=== PATIENT | female | born 1965 ===

== ENCOUNTER 2020-12-23 06:28 | Emergency (ER) | payer OTHER, MEDICAID, SELFPAY ==
[2020-12-23 06:30] VITALS: BP 175/94; PULSE 90; RESP 18; TEMP 36.2; O2SAT 99; BMI 39.0
--- NOTE | 2020-12-23 06:44 | ED.SKABFB ---
HPI - Skin/Abscess/Foreign Bdy General Chief complaint: Skin/Abscess/Foreign Body Stated complaint: thinks she has infection on her face/eyes x 2 days Time Seen by Provider: 12/23/20 06:44 Source: patient Mode of arrival: Ambulatory Limitations: no limitations History of Present Illness HPI narrative: Patient is a 55-year-old female who presents with left-sided facial swelling. She started noticing it yesterday but seems to gotten significantly worse last night. She says that she cannot breathe out of her left nostril extremely tender she feels like the whole side of her face is swollen. This morning she woke up in her left inferior periorbital area is quite swollen. She is able to open both eyes completely. She denies any fever chills any new exposures. She there is no erythema on her face that she says is quite sensitive to touch. MD complaint: rash Onset (ago): day(s) (1) Location: face Severity: mild Related Data Previous Rx's Medication Instructions Recorded prednisone 40 mg PO DAILY #10 tab 12/23/20 Allergies Allergy/AdvReac Type Severity Reaction Status Date / Time morphine [MORPHINE] Allergy Mild [place] like Unverified 12/04/17 12:12 bugs crawling on the skin Review of Systems Review of Systems ROS Unobtainable: All systems reviewed & are unremarkable except as noted in HPI and below Constitutional Constitutional: Denies chills, Denies fever(s), Denies headache(s), Denies lethargy and Denies weakness ENT Ears, Nose, Mouth, and Throat: Reports system reviewed and no additional complaints, except as documented, Reports as per HPI, Denies vertigo and Denies headache(s) Cardiovascular Cardiovascular: Denies chest pain, Denies irregular heart rhythm, Denies lightheadedness, Denies palpitations, Denies dyspnea, Denies dyspnea on exertion and Denies orthopnea Respiratory Respiratory: Denies cough, Denies dyspnea, Denies dyspnea on exertion and Denies wheezing Gastrointestinal Gastrointestinal: Denies abdominal pain, Denies change in bowel habits, Denies diarrhea, Denies nausea and Denies vomiting Musculoskeletal Musculoskeletal: Denies back pain and Denies myalgias Integumentary/Breasts Skin/Breast: Denies pruritus, Denies erythema, Denies rash and Denies wounds Neurologic Neurologic: Denies confusion, Denies vertigo, Denies headache(s) and Denies weakness Psychiatric Psychiatric: Denies confusion Endocrine Endocrine: Denies palpitations Allergic/Immunologic Allergic/Immunologic: Denies wheezing Patient History Surgical History Status post laparoscopic supracervical hysterectomy Social History Smoking Status: Former smoker Smoking Status: Former smoker Substance Use Type: does not use Exam Initial Vital Signs Initial Vital Signs: Vital Signs Temperature 97.2 F L 12/23/20 06:30 Pulse Rate 90 12/23/20 06:30 Respiratory Rate 18 12/23/20 06:30 Blood Pressure 175/94 H 12/23/20 06:30 Pulse Oximetry 99 12/23/20 06:30 GENERAL: Well-appearing, well-nourished and in no acute distress. HEENT: Head atraumatic,EOMI, pupils reactive, mild left-sided facial swelling around the left naris certain left nares more swollen. She has some left control periorbital swelling as well. Able to open both eyes completely. CARDIOVASCULAR: Regular rate and rhythm without murmurs, rubs or gallops. RESPIRATORY: Breath sounds equal bilaterally, no wheezes rales or rhonchi. EXTREMITIES: Normal range of motion, no clubbing or edema. Neurovascularly intact NEUROLOGICAL: Alert and oriented x4.Normal gait and speech. Cranial nerves II through XII grossly intact. SKIN: Warm, dry, no laceration, no petechiae, no rashes or lesions. Course Vital Signs Vital signs: Vital Signs - 8 hr 12/23/20 06:30 Temperature 97.2 F L Pulse Rate 90 Respiratory Rate 18 Blood Pressure 175/94 H Pulse Oximetry 99 MDM - Skin/Abscess/Foreign Bdy MDM Narrative Medical decision making narrative: Possible allergic reaction. Unknown as to what. At this time will treat with prednisone Benadryl and [id number] allergic to medications. No need for antibiotics at this time. However I did discuss with her that if her symptoms should worsen she may need antibiotics. Discharge Plan Departure Patient Disposition: Home Clinical Impression: Allergic reaction Qualifiers: Encounter type: initial encounter Qualified Code(s): T78.40XA - Allergy, unspecified, initial encounter Instructions: DI for General Allergic Reactions Activity Restrictions/Additional Instructions: *You have been diagnosed with allergic reaction *What to do: At this time I think this is allergic reaction and not an infection however that may change if you do not have improving symptoms *Continue to take medications as directed Prednisone 40 mg once daily for 5 days Benadryl 25-50 mg every 6 hours if needed for itching Gosy-knn-inqyhea allergic medications such as Claritin or Jeanne is take as directed *Follow up with your primary care provider in 2-3 days *Return to ER if you should have increasing redness, facial swelling, difficulty breathing or any new, worsening or concerning symptoms Prescriptions: New prednisone 20 mg tablet 40 mg PO DAILY Qty: 10 RF: 0
== END 2020-12-23 06:57 | disposition home or self-care (01) ==
PROVIDERS: Emergency Provider Emergency Medicine
DX: R21 Rash and other nonspecific skin eruption (principal); T78.40XA Allergy, unspecified, initial encounter
CPT/HCPCS: 99281

== ENCOUNTER 2021-01-02 16:13 | Observation (INO) | payer OTHER, MEDICAID, SELFPAY ==
--- NOTE | 2021-01-02 16:12 | ED_ITS ---
HPI - Abdominal Pain General Chief Complaint: Abdominal Pain Stated Complaint: Abd pain Time Seen by Provider: 01/02/21 16:14 Source: patient and EMS Mode of arrival: EMS Limitations: no limitations History of Present Illness HPI narrative: 55-year-old female former smoker with history of kidney stones and type 2 diabetes presents by EMS with a chief complaint of abdominal pain and tenderness since with nausea and watery stools. Her pain is rather persistent and she denies much in the way of provocation, palliation or radiation. Denies any recent travel, exposure to bad food or recent antibiotic use. She denies any history of the same. She is not dizzy nor weak or lightheaded. She denies any fever or chills. She does complain of some bright red blood in her stools over the past few days MD complaint: abdominal pain Onset (ago): day(s) Pain Consistency: constant Location: suprapubic Severity: moderate Quality: cramping and stabbing Radiation: none Relieving factors: nothing Exacerbating factors: nothing Associated symptoms: nausea and diarrhea Related Data Previous Rx's Medication Instructions Recorded prednisone 40 mg PO DAILY #10 tab 12/23/20 Allergies Allergy/AdvReac Type Severity Reaction Status Date / Time morphine [MORPHINE] Allergy Mild [place] like Verified 01/02/21 16:20 bugs crawling on the skin Review of Systems Constitutional Constitutional: Denies chills, Denies fatigue, Denies fever(s), Denies frequent falls, Denies lethargy and Denies weakness Eyes Eyes: Denies change in vision, Denies eye discharge, Denies irritation and Denies loss of vision ENT Ears, Nose, Mouth, and Throat: Denies change in voice, Denies dizziness, Denies neck pain, Denies sore throat and Denies throat swelling Cardiovascular Cardiovascular: Denies chest pain, Denies irregular heart rhythm, Denies lightheadedness, Denies palpitations, Denies dyspnea, Denies dyspnea on exertion and Denies orthopnea Respiratory Respiratory: Denies cough, Denies dyspnea, Denies dyspnea on exertion and Denies wheezing Gastrointestinal Gastrointestinal: Reports abdominal pain, Denies change in bowel habits, Reports diarrhea, Reports nausea and Denies vomiting Musculoskeletal Musculoskeletal: Denies neck pain and Denies numbness Integumentary/Breasts Skin/Breast: Denies pruritus, Denies erythema, Denies rash and Denies wounds Neurologic Neurologic: Denies behavioral changes, Denies confusion, Denies dizziness, Denies frequent falls, Denies loss of vision, Denies numbness and Denies weakness Psychiatric Psychiatric: Denies anxiety, Denies behavioral changes, Denies confusion, Denies depression, Denies homicidal ideation and Denies suicidal ideation Endocrine Endocrine: Denies fatigue, Denies flushing and Denies palpitations Hematologic/Lymphatic Hematologic/Lymphatic: Denies easy bruising Allergic/Immunologic Allergic/Immunologic: Denies urticaria, Denies throat swelling and Denies wheezing Patient History Surgical History Status post laparoscopic supracervical hysterectomy Social History Smoking Status: Current every day smoker Smoking Status: Current every day smoker alcohol intake frequency: 0-2 drinks per day Substance Use Type: does not use Exam Narrative Exam Narrative: GENERAL: [55] year old patient appears stated age. Well- nourished, well-developed patient, in mild distress. Anxious, rubbing her lower abdomen HEAD: Atraumatic. Normocephalic. EYES: Pupils equal round and reactive. Extraocular motions intact. No scleral icterus. No injection or drainage. ENT: Nose without bleeding, purulent drainage. Throat without erythema, tonsillar hypertrophy or exudate. Airway patent. NECK: Trachea midline. Non tender CARDIOVASCULAR: Regular rate and rhythm without murmurs, gallops, or rubs. RESPIRATORY: Clear to auscultation. Breath sounds equal bilaterally. No wheezes, rales, or rhonchi. GASTROINTESTINAL: Abdomen soft, mildly tender to palpation, nondistended. Increased bowel sounds in all 4 quadrants EXTREMITIES: No edema or joint tenderness. BACK: Nontender without deformity or crepitance. No flank tenderness. NEURO: AOx3. SKIN: No rash or erythema of visible areas Initial Vital Signs Initial Vital Signs: Vital Signs Temperature 98.7 F 01/02/21 16:20 Pulse Rate 109 H 01/02/21 16:20 Respiratory Rate 22 01/02/21 16:20 Blood Pressure 188/98 H 01/02/21 16:20 Pulse Oximetry 98 01/02/21 16:20 Course Orders Ordered: ED Orders 01/02/21 16:16 CT abdomen pelvis w con Stat 01/02/21 16:50 Blood Culture Stat Complete Blood Count AUTO DIFF Stat Comprehensive Metabolic Panel Stat Lactate (Lactic Acid) Stat 01/02/21 17:00 Urine Microscopic Stat 01/02/21 18:42 COVID19 - ADMIT (MACHINIST CLASS B swab/PCR) Stat Piperacillin/Tazobactam/Dextrose (Zosyn) 4.5 gm in 100 mls @ 200 mls/hr IV NOW ONE Stop: 01/02/21 18:58 Last Admin: 01/02/21 18:38 Dose: 200 mls/hr Documented by: MIRIAN Discontinued Medications Sodium Chloride (Normal Saline 0.9%) 1,000 mls @ 1,000 mls/hr IV BOLUS ONE Stop: 01/02/21 17:14 Last Admin: 01/02/21 16:50 Dose: 1,000 mls/hr Documented by: MIRIAN Consultations Consultation #1: Discussed initially with on-call surgery, given the duration of her symptoms and overall presentation she recommends IV fluids, pain control, antibiotics and will see in consultation, recommended admission to the hospitalist Consultation #2: Hospitalist happy to accept this patient on their service Vital Signs Vital signs: Vital Signs - 8 hr 01/02/21 16:20 Temperature 98.7 F Pulse Rate 109 H Respiratory Rate 22 Blood Pressure 188/98 H Pulse Oximetry 98 MDM - Abdominal Pain Lab Data Result diagrams: 01/02/21 16:50 01/02/21 16:50 Labs: Lab Results 01/02/21 01/02/21 01/02/21 Range/Units 16:50 16:50 16:50 WBC 8.0 (4.5-11.0) X10^3/uL RBC 4.70 (4.0-5.2) X10^6/uL Hgb 14.0 (12.0-16.0) g/dL Hct 41.1 (36-46) % MCV 87.6 (80-100) fL MCH 29.8 (26-34) PG MCHC 34.0 (30-36) % RDW 13.3 (11.6-14.8) % Plt Count 281 (150-400) X10^3/uL Neut % (Auto) 75.2 H (50-75) % Lymph % (Auto) 17.8 L (25-40) % [place] % (Auto) 5.1 (3-14) % Eos % (Auto) 1.0 L (2-4) % Baso % (Auto) 0.9 (0-2) % Neut # (Auto) 6000 (3337-2463) /uL Lymph # (Auto) 1400 (4047-7922) /uL [place] # (Auto) 400 (0-900) /uL Eos # (Auto) 100 (0-450) /uL Baso # (Auto) 100 (0-100) /uL Sodium 133 L (137-145) mmol/L Potassium 4.0 (3.4-5.1) mmol/L Chloride 98 (98-107) mmol/L Carbon Dioxide 23 (22-32) mmol/L BUN 14 (7-17) mg/dL Creatinine 0.71 (0.52-1.04) mg/dL Estimated GFR > 60.0 (>60) mL/min BUN/Creatinine Ratio 19.7 (6-22) Glucose 312 H (70-100) mg/dL Lactate 1.2 (0.7-2.1) mmol/L Calcium 9.4 (8.4-10.2) mg/dL Total Bilirubin 0.4 (0.2-1.3) mg/dL AST 21 (14-36) IU/L ALT 20 (<35) IU/L Alkaline Phosphatase 131 H (38-126) U/L Total Protein 6.9 (6.3-8.2) g/dL Albumin 4.0 (3.5-5.0) g/dL Globulin 2.9 (1.7-4.1) g/dL Albumin/Globulin Ratio 1.4 (1.0-2.8) Urine RBC (0-5/HPF) Urine WBC (0-5/HPF) Ur Squamous Epith Cells (0-5/HPF) Urine Bacteria (None) Ur Culture Indicated? 01/02/21 Range/Units 17:00 WBC (4.5-11.0) X10^3/uL RBC (4.0-5.2) X10^6/uL Hgb (12.0-16.0) g/dL Hct (36-46) % MCV (80-100) fL MCH (26-34) PG MCHC (30-36) % RDW (11.6-14.8) % Plt Count (150-400) X10^3/uL Neut % (Auto) (50-75) % Lymph % (Auto) (25-40) % [place] % (Auto) (3-14) % Eos % (Auto) (2-4) % Baso % (Auto) (0-2) % Neut # (Auto) (2607-3942) /uL Lymph # (Auto) (2598-3499) /uL [place] # (Auto) (0-900) /uL Eos # (Auto) (0-450) /uL Baso # (Auto) (0-100) /uL Sodium (137-145) mmol/L Potassium (3.4-5.1) mmol/L Chloride (98-107) mmol/L Carbon Dioxide (22-32) mmol/L BUN (7-17) mg/dL Creatinine (0.52-1.04) mg/dL Estimated GFR (>60) mL/min BUN/Creatinine Ratio (6-22) Glucose (70-100) mg/dL Lactate (0.7-2.1) mmol/L Calcium (8.4-10.2) mg/dL Total Bilirubin (0.2-1.3) mg/dL AST (14-36) IU/L ALT (<35) IU/L Alkaline Phosphatase (38-126) U/L Total Protein (6.3-8.2) g/dL Albumin (3.5-5.0) g/dL Globulin (1.7-4.1) g/dL Albumin/Globulin Ratio (1.0-2.8) Urine RBC 0-1/hpf (0-5/HPF) Urine WBC 0-1/hpf (0-5/HPF) Ur Squamous Epith Cells 5-10 /hpf H (0-5/HPF) Urine Bacteria Few (2-10) H (None) Ur Culture Indicated? Cult not indicated Point of care testing: Point of Care Testing Test Results Negative Urine Dip Bedside Urine Glucose 1000 mg/dl Bedside Urine Bilirubin - Negative Bedside Urine Ketone +/- 5 Urine Specific [place] 1.015 Bedside Urine Occult Blood - Negative Bedside Urine pH 6.0 Bedside Urine Protein - Negative Bedside Urine Urobilinogen - Negative Bedside Urine Nitrite - Negative Imaging Data CT scan - abdomen/pelvis: Radiologist's Impression: [place] [id number] Scan ReportSigned Patient: Ginny Beebe R#: [id number]: 1965Acct:[id number]/Sex: 55 / FDate of Service: 01/02/21Loc: EDAccession Number: [id number] Procedure: CT abdomen pelvis w con Ordering Provider: Ruel Johnston D.O. PROCEDURE: CT ABDOMEN PELVIS W CON INDICATIONS: severe abdominal pain TECHNIQUE: After the administration of intravenous contrast, 5 mm thick sections acquired from the diaphragm to the symphysis. 5 mm coronal and sagittal reformats were acquired. For radiation dose reduction, the following was used: automated exposure control, adjustment of mA and/or kV according to patient size. COMPARISON: [facility], CT, ABDOMEN/PELVIS WITH CONTRAST, 09/07/2015, 22:04. FINDINGS: Lower thorax: The lung bases are clear. Heart size normal. Small hiatal hernia noted. Liver: The liver is diffusely decreased in attenuation without focal mass lesion. Biliary system: No calcified cholelithiasis or pericholecystic inflammation. No intra or extrahepatic bile duct dilatation. Pancreas: Unremarkable without mass or inflammation evident. Spleen: Normal in size and density. Adrenals: Normal morphology and density. Reproductive system: Unremarkable as visualized. Urinary system: Normal renal size and attenuation. No renal calculi, hydronephrosis, or solid mass present. Urinary bladder unremarkable. Gastrointestinal system: Associated with a loop of small bowel in the left flank, there is a 3.2 by 2.8 cm ovoid low density shows mural pneumatosis without evidence of free air. No small bowel obstruction. Appendix: Normal appendix identified. No evidence of appendicitis. Peritoneal spaces: No intra- or retroperitoneal adenopathy. No free air. No free fluid. Vasculature: The IVC, aorta and iliac vasculature are unremarkable. No evidence of portal venous gas. Mild atherosclerotic vascular calcification. Musculoskeletal: Normal bone mineralization. No acute fractures. Abdominal wall intact without evidence of ventral or inguinal hernias. L5 laminectomy with posterior instrumentation in good position. IMPRESSION: 1. Proximal small bowel focal pneumatosis in the left flank. Differential would include localized mesenteric ischemia and thrombosed small bowel polyp. No evidence of obstruction, portal venous gas, free air or free fluid. 2. Incidental hepatic fatty infiltration, small hiatal hernia. Critical results were discussed with Dr Johnston on 5:27 p.m. [place] time 05/2021 Dictated by: Ajit Chapin M.D. on 01/02/2021 at 17:13 Approved by: Ajit Chapin M.D. on 01/02/2021 at 17:31 Discharge Plan Departure Patient Disposition: Admitted As Inpatient Clinical Impression: Pneumatosis intestinalis
--- NOTE | 2021-01-02 16:16 | DI.CT.S_ITS ---
PROCEDURE: CT ABDOMEN PELVIS W CON INDICATIONS: severe abdominal pain TECHNIQUE: After the administration of intravenous contrast, 5 mm thick sections acquired from the diaphragm to the symphysis. 5 mm coronal and sagittal reformats were acquired. For radiation dose reduction, the following was used: automated exposure control, adjustment of mA and/or kV according to patient size. COMPARISON: [facility], CT, ABDOMEN/PELVIS WITH CONTRAST, 09/07/2015, 22:04. FINDINGS: Lower thorax: The lung bases are clear. Heart size normal. Small hiatal hernia noted. Liver: The liver is diffusely decreased in attenuation without focal mass lesion. Biliary system: No calcified cholelithiasis or pericholecystic inflammation. No intra or extrahepatic bile duct dilatation. Pancreas: Unremarkable without mass or inflammation evident. Spleen: Normal in size and density. Adrenals: Normal morphology and density. Reproductive system: Unremarkable as visualized. Urinary system: Normal renal size and attenuation. No renal calculi, hydronephrosis, or solid mass present. Urinary bladder unremarkable. Gastrointestinal system: Associated with a loop of small bowel in the left flank, there is a 3.2 by 2.8 cm ovoid low density shows mural pneumatosis without evidence of free air. No small bowel obstruction. Appendix: Normal appendix identified. No evidence of appendicitis. Peritoneal spaces: No intra- or retroperitoneal adenopathy. No free air. No free fluid. Vasculature: The IVC, aorta and iliac vasculature are unremarkable. No evidence of portal venous gas. Mild atherosclerotic vascular calcification. Musculoskeletal: Normal bone mineralization. No acute fractures. Abdominal wall intact without evidence of ventral or inguinal hernias. L5 laminectomy with posterior instrumentation in good position. IMPRESSION: 1. Proximal small bowel focal pneumatosis in the left flank. Differential would include localized mesenteric ischemia and thrombosed small bowel polyp. No evidence of obstruction, portal venous gas, free air or free fluid. 2. Incidental hepatic fatty infiltration, small hiatal hernia. Critical results were discussed with Dr Johnston on 5:27 p.m. [place] time 01/02/2021 Dictated by: Ajit Chapin M.D. on 01/02/2021 at 17:13 Approved by: Ajit Chapin M.D. on 01/02/2021 at 17:31
[2021-01-02 16:20] VITALS: BP 188/98; PULSE 109; RESP 22; TEMP 37.1; O2SAT 98; BMI 85.9
[2021-01-02] MEDS: SODIUM CHLORIDE 0.9% 1,000 ML 1000 ML IV (16:50)
[2021-01-02 17:05] LABS: Add Manual Diff / Slide Review NO; Basophils Absolute Auto 100 /uL (0-100); Basophils Percent Auto 0.9 % (0-2); Eosinophils Absolute Auto 100 /uL (0-450); Hematocrit 41.1 % (36-46); Lymphocytes Absolute Auto 1400 /uL (1100-4500); Lymphocytes Percent Auto 17.8 % (25-40); Mean Corpuscular Hemoglobin 29.8 PG (26-34); Mean Corpuscular Volume 87.6 fL (80-100); Monocytes Absolute Auto 400 /uL (0-900); Monocytes Percent Auto 5.1 % (3-14); Neutrophils Absolute Auto 6000 /uL (1500-7000); Neutrophils Percent Auto 75.2 % (50-75); Platelet Count 281 X10^3/uL (150-400); Red Cell Distribution Width 13.3 % (11.6-14.8)
[2021-01-02 17:11] LABS: Lactate (Lactic Acid) 1.2 mmol/L (0.7-2.1)
[2021-01-02 17:12] LABS: Alanine Aminotransferase 20 IU/L (<35); Albumin Globulin Ratio 1.4 (1.0-2.8); Alkaline Phosphatase 131 U/L (38-126); Aspartate Aminotransferase 21 IU/L (14-36); BUN Creatinine Ratio 19.7 (6-22); Bilirubin Total 0.4 mg/dL (0.2-1.3); Blood Urea Nitrogen 14 mg/dL (7-17); Calcium 9.4 mg/dL (8.4-10.2); Carbon Dioxide 23 mmol/L (22-32); Chloride 98 mmol/L (98-107); Estimated Glomerular Filt Rate > 60.0 mL/min (>60); Globulin 2.9 g/dL (1.7-4.1); Glucose 312 mg/dL (70-100); HEMOLYSIS < 15 (0-50); Sodium 133 mmol/L (137-145); Total Protein 6.9 g/dL (6.3-8.2)
[2021-01-02 17:52] LABS: Bacteria Urine Few (2-10); Culture Indicated Urine Cult Not Indicated; RBC Urine 0-1/HPF (0-5/HPF); Squamous Epithelial Cell Urine 5-10 /HPF (0-5/HPF); WBC Urine 0-1/HPF (0-5/HPF)
[2021-01-02] MEDS: PIPERACILLIN-TAZO 4.5 GM/100 ML FROZ.PIGGY IV (18:38)
[2021-01-02] MEDS: ONDANSETRON 4 MG/2 ML INJ IV (19:16)
[2021-01-02] MEDS: HYDROMORPHONE 0.5 MG INJ IV (19:16)
--- NOTE | 2021-01-02 19:43 | PM.HP.1 ---
History of Present Illness History of Present Illness Date Patient Seen: 01/02/21 Time Patient Seen: 19:43 Chief complaint: Abd pain Narrative: Patient is a 55-year-old female Ginny Beebe presented to the ED via EMS with a chief complaint of abdominal pain and tenderness since with nausea and watery stools and incontinence of stools. Her pain is sharp and comes and goes but is persistent, without provocation, palliation or radiation. The pain is generally diffuse, with the greatest intensity in a band like presentation across the upper left to right abdomen, No CVA tenderness, no pain with urination or liquid stools. Denies any recent travel, exposure to bad food or recent antibiotic use, injury, trauma, fever, body aches, or chills. She does complain of some bright red blood in her stools over the past few days and dizziness and balance issues with standing leading her to have spent the past 5 days in bed. Patient is a former smoker with history of kidney stones, a heart attack with 3 way bypass [place] in August 2019, Positive covid infectiona few months ago, HTN, depression with anxiety, chronic pain neck with neck fusion 07/2020 and Diabetes Type 2. Patient reports that she became so ill with her COVID infection a few months ago that she stop taking all of her medications which included metformin, asa, Atorvastatin, Plavix, lisinopril, citalopram, Prozac, and buspirone. Patent's vitals at the time of admit temp 98.7?, BP 188/98, HR 109, R 22, O2 saturation 98% on room air. Patient's labs sodium 133, glucose 312, alk-phos 131. CT ABD/Pelvis: Proximal small bowel focal pneumatosis in the left flank. Differential would include localized mesenteric ischemia and thrombosed small bowel polyp. No evidence of obstruction, portal venous gas, free air or free fluid. Incidental hepatic fatty infiltration, small hiatal hernia. ED Consultation #1: Discussed initially with on-call surgery, given the duration of her symptoms and overall presentation she recommends IV fluids, pain control, antibiotics and will see in consultation, recommended admission to the hospitalist. Admit for Pneumatosis Intestinalis Patient History Medical History (Updated 01/02/21 @ 20:53 by DANIEL Recinos-TONG) Depression with anxiety Essential hypertension History of COVID-19 History of heart attack Non-insulin dependent type 2 diabetes mellitus Tobacco abuse Surgical History (Updated 01/02/21 @ 20:53 by [facility] History of fusion of cervical spine History of heart bypass surgery Status post laparoscopic supracervical hysterectomy Family & Social History Family History Father Heart attack Mother Breast cancer Safety & Behavioral: Feels Safe in Current Yes Environment Been Physically Hurt or No Threatened By a Person Tobacco & Substance use: Smoking Status Current every day smoker alcohol intake frequency 0-2 drinks per day Substance Use Type does not use Meds Home Medications and Allergies Home Medications Medication Instructions Recorded Confirmed Type aspirin 81 mg PO DAILY 01/02/21 01/02/21 History buspirone 15 mg PO BID 01/02/21 01/02/21 History citalopram 10 mg PO DAILY 01/02/21 01/02/21 History clopidogrel 75 mg PO DAILY 01/02/21 01/02/21 History fluoxetine 10 mg PO DAILY 01/02/21 01/02/21 History tizanidine 8 mg PO TID PRN 01/02/21 01/02/21 History Allergies Allergy/AdvReac Type Severity Reaction Status Date / Time morphine [MORPHINE] Allergy Mild [place] like Verified 01/02/21 16:20 bugs crawling on the skin Review of Systems Review of Systems ROS: Yes All systems reviewed with the patient and are negative except as otherwise documented Constitutional Constitutional: Reports poor appetite and Reports weakness Gastrointestinal Gastrointestinal: Reports abdominal pain, Reports fecal incontinence and Reports loose stools Neurologic Neurologic: Reports weakness Exam Vital Signs (past 8 hours): - 01/02/21 16:20 Temperature 98.7 F Pulse Rate 109 H Respiratory Rate 22 Blood Pressure 188/98 H Pulse Oximetry 98 Oxygen Delivery Method Room Air Narrative Exam Narrative: General: Patient is a well-developed, well-nourished in no distress at this time. HEENT: Normocephalic, atraumatic, extraocular muscles intact, oral pharynx is clear and mucous membranes are moist. Neck is supple and symmetric, trachea is midline, no adenopathy, no thyroid enlargement, nontender, no masses palpated. Negative for JVD Chest: Normal AP diameter and contour without kyphoscoliosis, no nasal flaring, retractions, or tachypneic labored Lungs: Auscultation of all lung [place] are clear without adventitious sounds, wheezes, rhonchi, or rales. Cardio: S1 & S2 with regular rate and rhythm without murmur, rubs, or gallops, no carotid bruit, no cardiac pulsations present. Abdomen: Soft tender in band like fashion across upper left & right quadrants, negative for organomegaly, or masses. Bowel sounds are present in all 4 quadrants without guarding or rebound, no CVA tenderness, negative sewage plant operator, psoas, Roper sign. Musculoskeletal: Muscle strength and tone are equal within normal limits, no deformity, crepitus, effusions, cyanosis, clubbing or edema present. Full range of motion intact radial and pedal pulses are normal. Skin: Warm dry and intact without rashes, ulcerations or petechiae. Patient has healed surgical scar to in her left forearm from bypass vein harvest. Neuro: Alert and orientated x3, strength is +5/5 in all extremities, sensation to touch intact, no gross deficits noted of cranial nerves. Psych: Patient has a well-kept appearance, appropriate affect, mental status attitude thought context and judgment are appropriate for age. Objective Labs Result Diagrams: 01/02/21 16:50 01/02/21 16:50 Labs: Laboratory Results - last 24 hr 01/02/21 01/02/21 01/02/21 16:50 16:50 16:50 WBC 8.0 RBC 4.70 Hgb 14.0 Hct 41.1 MCV 87.6 MCH 29.8 MCHC 34.0 RDW 13.3 Plt Count 281 Neut % (Auto) 75.2 H Lymph % (Auto) 17.8 L [place] % (Auto) 5.1 Eos % (Auto) 1.0 L Baso % (Auto) 0.9 Neut # (Auto) 6000 Lymph # (Auto) 1400 [place] # (Auto) 400 Eos # (Auto) 100 Baso # (Auto) 100 Sodium 133 L Potassium 4.0 Chloride 98 Carbon Dioxide 23 BUN 14 Creatinine 0.71 Estimated GFR > 60.0 BUN/Creatinine Ratio 19.7 Glucose 312 H Lactate 1.2 Calcium 9.4 Total Bilirubin 0.4 AST 21 ALT 20 Alkaline Phosphatase 131 H Total Protein 6.9 Albumin 4.0 Globulin 2.9 Albumin/Globulin Ratio 1.4 Urine RBC Urine WBC Ur Squamous Epith Cells Urine Bacteria Ur Culture Indicated? 01/02/21 17:00 WBC RBC Hgb Hct MCV MCH MCHC RDW Plt Count Neut % (Auto) Lymph % (Auto) [place] % (Auto) Eos % (Auto) Baso % (Auto) Neut # (Auto) Lymph # (Auto) [place] # (Auto) Eos # (Auto) Baso # (Auto) Sodium Potassium Chloride Carbon Dioxide BUN Creatinine Estimated GFR BUN/Creatinine Ratio Glucose Lactate Calcium Total Bilirubin AST ALT Alkaline Phosphatase Total Protein Albumin Globulin Albumin/Globulin Ratio Urine RBC 0-1/hpf Urine WBC 0-1/hpf Ur Squamous Epith Cells 5-10 /hpf H Urine Bacteria Few (2-10) H Ur Culture Indicated? Cult not indicated Assessment & Plan Assessment & Plan narrative: This patient requires acute care inpatient hospital management for pneumatosis intestinalis, after failing outpatient management. The patient is at much higher risk for medical and surgical complications because of her history of heart attack, bypass, hypertension, coronary artery disease, recent COVID infection, and non insulin-dependent type 2 diabetes. This factor increase the difficulty and complexity of medical and surgical interventions and increases the chances of poor outcomes such as morbidity and mortality. The patient's tobacco abuse will impact her oxygenation. 1. Pneumatosis Intestinalis (proximal small-bowel focal pneumatosis in the left flank), acute, present on admission, patient is stable. vitals at the time of admit temp 98.7?, BP 188/98, HR 109, R 22, O2 saturation 98% on room air. Patient's labs sodium 133, glucose 312, alk-phos 131. CT ABD/Pelvis: Proximal small bowel focal pneumatosis in the left flank. Differential would include localized mesenteric ischemia and thrombosed small bowel polyp. No evidence of obstruction, portal venous gas, free air or free fluid. Incidental hepatic fatty infiltration, small hiatal hernia. ED Consultation #1: Discussed initially with on-call surgery, given the duration of her symptoms and overall presentation she recommends IV fluids, pain control, antibiotics and will see in consultation, recommended admission to the hospitalist. Admit for Pneumatosis Intestinalis -I suspect that patient's abdominal pain and presentation is a combination of uncontrolled diabetes, hyperlipidemia, and HTN due to ilness induced noncompliance exacerbating the above PI found on imaging. And that the patient should respond well to fluids, BS & B/P control, and antibiotics. Surgery agreed to consult tomorrow for further evaluation. -Admit to medicine, vital signs q.4 hours, intake and output monitored Q shift, weight measure daily, diet: clear liquids until midnight then NPO over night until vomiting resolves them progress to elemental diet. -IV fluid LR @100cc/hr -Metronidazole 500mg IV Q 6 hrs-if the patient develops worsening nausea and vomiting will change to vancomycin. -manage nausea, vomiting, pain control -BMP, CBC, Lactate, Mag ordered in am -Surgery consult tomorrow 2. Type 2 diabetes, acute on chronic, present on admission, uncontrolled -admit glucose 312, patient admitted under diabetes protocol, low-dose insulin sliding scale for blood sugar management, A1c: 10%. -will start patient on lantus 10units at bed time, due to A1C patient should be started on lantus for control. 3. Essential hypertension secondary to coronary artery disease resulting in heart attack and 3 way bypass, 2019, related to uncontrolled Diabetes type 2, acute on chronic, present on admission, uncontrolled due to patient's noncompliance. -restart patients atorvastatin, Plavix, ASA, and lisinopril. Lipids ordered. 4. Recent COVID positive infection 2020, not present on admission -Covid PCR : Negative 5. Depression with anxiety, acute on chronic, present on admission, uncontrolled -patient denies SI -will restart patients buspirone, citalopram, and Prozac. Code status: Full code Surrogate decisionmaker: Sabrina Franco Daughter COVID PCR: Negative DVT/VTE prophylaxis: SCDs Patients on Plavix PCP: Shanda Alexander in [place] Scores GCS [place] coma scale eye opening: Spontaneous [place] coma scale verbal response: Orientated [place] coma scale motor response: [place]bey commands [place] coma scale total score: 15 CHADS-VASc Congestive heart failure: no Hypertension: yes Age 75 years or older: no Diabetes mellitus: yes Stroke, TIA, or TE: no Vascular disease: yes Age 65 to 74 years: no Sex category (female): Female CHADS-VASc Score: 4 Wells' Criteria for PE Clinical signs and symptoms of DVT: No PE is #1 Dx or equally likely: No Heart rate > 100: Yes Immobilization at least 3 days or surg in previous 4 weeks: Yes History of PE or DVT: No Hemoptysis: No Malignancy w/Treatment within 6 months or palliative: No Wells' PE Score total: 3.0 Quality MIPS - Admit I confirm the patient?s Advance Care Plan is present, Code status is documented, Surrogate decision maker is in patient?s record [If Yes, STOP here]: Yes
[2021-01-02 20:05] VITALS: BP 152/77; PULSE 92; RESP 17; TEMP 36.3; O2SAT 92
[2021-01-02 20:17] LABS: Magnesium 1.9 mg/dL (1.6-2.3)
[2021-01-02 20:18] LABS: Cholesterol 202 mg/dL (140-199); HDL Cholesterol 32 mg/dL (40-60)
[2021-01-02 20:36] LABS: Triglycerides 560 mg/dL (35-150)
[2021-01-02 21:12] VITALS: BMI 38.2
[2021-01-02 21:51] VITALS: O2SAT 92
[2021-01-02] MEDS: metroNIDAZOLE 500 MG/100 ML PIGGYBACK 100 MG IV (22:06)
[2021-01-02] MEDS: TIZANIDINE 4 MG TABLET 8 MG PO (22:06)
[2021-01-02] MEDS: LACTATED RINGERS 1,000 ML 100 ML IV (22:06)
[2021-01-02 22:07] VITALS: BP 157/77
[2021-01-02] MEDS: lisinopriL 10 MG TABLET PO (22:07)
[2021-01-02] MEDS: SENNOSIDES 8.6 MG TABLET 17.2 MG PO (22:07)
[2021-01-02] MEDS: ATORVASTATIN 20 MG TABLET 80 MG PO (22:07)
[2021-01-02] MEDS: KETOROLAC 30 MG/ML VIAL IV (22:08)
[2021-01-02] MEDS: INSULIN GLARGINE 100 UNIT/ML 3ML PEN 10 UNIT SUBCUT (23:00)
[2021-01-02] MEDS: INSULIN LISPRO 100 UNIT/ML 3ML VIAL SUBCUT (23:01)
[2021-01-02 23:25] VITALS: BP 117/64; PULSE 72; RESP 18; TEMP 36.4; O2SAT 94
[2021-01-03] VITALS (11 sets, daily range): BP systolic 117–133; BP diastolic 51–72; PULSE 52–72; RESP 16–20; TEMP 36.2–36.6; O2SAT 94–98
[2021-01-03 00:02] LABS: COVID19 - ADMIT (NP swab/PCR) POSITIVE (Negative)
[2021-01-03] MEDS: metroNIDAZOLE 500 MG/100 ML PIGGYBACK 100 MG IV ×3 (02:10→12:52)
[2021-01-03] MEDS: HYDROMORPHONE 0.5 MG INJ IV ×4 (02:10→19:47)
[2021-01-03] MEDS: PANTOPRAZOLE DR 20 MG TABLET PO (05:59)
[2021-01-03] MEDS: KETOROLAC 30 MG/ML VIAL IV (05:59)
[2021-01-03 07:22] LABS: INR 1.1 (0.9-1.3); Prothrombin Time 11.9 SECONDS (10.1-12.7)
[2021-01-03 07:23] LABS: Add Manual Diff / Slide Review NO; Basophils Absolute Auto 100 /uL (0-100); Basophils Percent Auto 1.8 % (0-2); Eosinophils Absolute Auto 200 /uL (0-450); Eosinophils Percent Auto 2.8 % (2-4); Hematocrit 35.3 % (36-46); Lymphocytes Absolute Auto 2000 /uL (1100-4500); Lymphocytes Percent Auto 36.4 % (25-40); Mean Corpuscular HGB Conc 34.1 % (30-36); Mean Corpuscular Hemoglobin 29.9 PG (26-34); Mean Corpuscular Volume 87.6 fL (80-100); Monocytes Absolute Auto 500 /uL (0-900); Monocytes Percent Auto 8.6 % (3-14); Neutrophils Absolute Auto 2800 /uL (1500-7000); Neutrophils Percent Auto 50.4 % (50-75); Platelet Count 234 X10^3/uL (150-400); Red Blood Cell Count 4.03 X10^6/uL (4.0-5.2); Red Cell Distribution Width 13.2 % (11.6-14.8); White Blood Cell Count 5.6 X10^3/uL (4.5-11.0)
[2021-01-03 07:24] LABS: Lactate (Lactic Acid) 0.8 mmol/L (0.7-2.1)
[2021-01-03 07:25] LABS: BUN Creatinine Ratio 16.3 (6-22); Blood Urea Nitrogen 14 mg/dL (7-17); Calcium 8.8 mg/dL (8.4-10.2); Carbon Dioxide 24 mmol/L (22-32); Chloride 106 mmol/L (98-107); Estimated Glomerular Filt Rate > 60.0 mL/min (>60); Glucose 213 mg/dL (70-100); HEMOLYSIS < 15 (0-50); Potassium 3.7 mmol/L (3.4-5.1); Sodium 135 mmol/L (137-145)
[2021-01-03 07:34] LABS: NT-proBNP (BNP-Adult 18+) 93 pg/mL (<125)
--- NOTE | 2021-01-03 07:34 | PM.CN ---
History of Present Illness Consult details Date Patient Seen: 01/03/21 Time Patient Seen: 06:35 Chief complaint: Abd pain Reason for consult: abd pain, abnormal CT scan Requesting provider: Ruel Johnston Narrative: Watery diarrhea and abdominal pain since last (5 days). Pain in band across mid abdomen, intermittent, crampy. No nausea or emesis. Blood on the stool the last 24hrs. Recent Covid and test positive for Covid again. [place] last year with cardiac stents. No previous episodes of this nature. CT: scan I reviewed personally and there is a segment of jejunum with pneumatosis, NO obstruction, and a circular entity that could represent diverticulum. NO free air Meds Home Medications and Allergies Home Medications Medication Instructions Recorded Confirmed Type aspirin 81 mg PO DAILY 01/02/21 01/02/21 History buspirone 15 mg PO BID 01/02/21 01/02/21 History citalopram 10 mg PO DAILY 01/02/21 01/02/21 History clopidogrel 75 mg PO DAILY 01/02/21 01/02/21 History fluoxetine 10 mg PO DAILY 01/02/21 01/02/21 History tizanidine 8 mg PO TID PRN 01/02/21 01/02/21 History Allergies Allergy/AdvReac Type Severity Reaction Status Date / Time morphine [MORPHINE] Allergy Mild [place] like Verified 01/02/21 16:20 bugs crawling on the skin Exam Vital Signs (past 8 hours): - 01/03/21 01:00 01/03/21 05:00 01/03/21 06:00 Temperature 97.9 F Pulse Rate 66 Respiratory Rate 18 Blood Pressure 132/63 Pulse Oximetry 94 96 96 Oxygen Delivery Method Room Air Oxygen Flow Rate 0 Objective Labs Result Diagrams: 01/03/21 07:00 01/03/21 07:00 Labs: Laboratory Results - last 24 hr 01/02/21 01/02/21 01/02/21 16:50 16:50 16:50 WBC 8.0 RBC 4.70 Hgb 14.0 Hct 41.1 MCV 87.6 MCH 29.8 MCHC 34.0 RDW 13.3 Plt Count 281 Neut % (Auto) 75.2 H Lymph % (Auto) 17.8 L [place] % (Auto) 5.1 Eos % (Auto) 1.0 L Baso % (Auto) 0.9 Neut # (Auto) 6000 Lymph # (Auto) 1400 [place] # (Auto) 400 Eos # (Auto) 100 Baso # (Auto) 100 PT INR Sodium 133 L Potassium 4.0 Chloride 98 Carbon Dioxide 23 BUN 14 Creatinine 0.71 Estimated GFR > 60.0 BUN/Creatinine Ratio 19.7 Glucose 312 H Hemoglobin A1c Lactate 1.2 Calcium 9.4 Magnesium Total Bilirubin 0.4 AST 21 ALT 20 Alkaline Phosphatase 131 H Total Protein 6.9 Albumin 4.0 Globulin 2.9 Albumin/Globulin Ratio 1.4 Triglycerides Cholesterol LDL Cholesterol, Calc HDL Cholesterol Urine RBC Urine WBC Ur Squamous Epith Cells Urine Bacteria Ur Culture Indicated? SARS-CoV-2 (PCR) 01/02/21 01/02/21 01/02/21 16:50 17:00 18:36 WBC RBC Hgb Hct MCV MCH MCHC RDW Plt Count Neut % (Auto) Lymph % (Auto) [place] % (Auto) Eos % (Auto) Baso % (Auto) Neut # (Auto) Lymph # (Auto) [place] # (Auto) Eos # (Auto) Baso # (Auto) PT INR Sodium Potassium Chloride Carbon Dioxide BUN Creatinine Estimated GFR BUN/Creatinine Ratio Glucose Hemoglobin A1c 10.0 H Lactate Calcium Magnesium 1.9 Total Bilirubin AST ALT Alkaline Phosphatase Total Protein Albumin Globulin Albumin/Globulin Ratio Triglycerides Cholesterol LDL Cholesterol, Calc HDL Cholesterol Urine RBC 0-1/hpf Urine WBC 0-1/hpf Ur Squamous Epith Cells 5-10 /hpf H Urine Bacteria Few (2-10) H Ur Culture Indicated? Cult not indicated SARS-CoV-2 (PCR) 01/02/21 01/02/21 01/03/21 18:36 22:40 07:00 WBC 5.6 RBC 4.03 Hgb 12.0 Hct 35.3 L MCV 87.6 MCH 29.9 MCHC 34.1 RDW 13.2 Plt Count 234 Neut % (Auto) 50.4 D Lymph % (Auto) 36.4 [place] % (Auto) 8.6 Eos % (Auto) 2.8 Baso % (Auto) 1.8 Neut # (Auto) 2800 Lymph # (Auto) 2000 [place] # (Auto) 500 Eos # (Auto) 200 Baso # (Auto) 100 PT INR Sodium Potassium Chloride Carbon Dioxide BUN Creatinine Estimated GFR BUN/Creatinine Ratio Glucose Hemoglobin A1c Lactate Calcium Magnesium Total Bilirubin AST ALT Alkaline Phosphatase Total Protein Albumin Globulin Albumin/Globulin Ratio Triglycerides 560 H Cholesterol 202 H LDL Cholesterol, Calc TNP HDL Cholesterol 32 L Urine RBC Urine WBC Ur Squamous Epith Cells Urine Bacteria Ur Culture Indicated? SARS-CoV-2 (PCR) Positive H 01/03/21 01/03/21 01/03/21 07:00 07:00 07:00 WBC RBC Hgb Hct MCV MCH MCHC RDW Plt Count Neut % (Auto) Lymph % (Auto) [place] % (Auto) Eos % (Auto) Baso % (Auto) Neut # (Auto) Lymph # (Auto) [place] # (Auto) Eos # (Auto) Baso # (Auto) PT 11.9 INR 1.1 Sodium 135 L Potassium 3.7 Chloride 106 Carbon Dioxide 24 BUN 14 Creatinine 0.86 Estimated GFR > 60.0 BUN/Creatinine Ratio 16.3 Glucose 213 H Hemoglobin A1c Lactate 0.8 Calcium 8.8 Magnesium Total Bilirubin AST ALT Alkaline Phosphatase Total Protein Albumin Globulin Albumin/Globulin Ratio Triglycerides Cholesterol LDL Cholesterol, Calc HDL Cholesterol Urine RBC Urine WBC Ur Squamous Epith Cells Urine Bacteria Ur Culture Indicated? SARS-CoV-2 (PCR)
[2021-01-03] MEDS: CITALOPRAM 10 MG TABLET PO (08:35)
[2021-01-03] MEDS: lisinopriL 10 MG TABLET PO ×2 (08:36→20:36)
[2021-01-03] MEDS: ASPIRIN 81 MG CHEW TAB PO (08:36)
[2021-01-03] MEDS: BUSPIRONE 5 MG TABLET 15 MG PO ×2 (08:36→20:35)
[2021-01-03] MEDS: FLUoxetine 10 MG CAPSULE PO (08:36)
[2021-01-03] MEDS: CLOPIDOGREL 75 MG TABLET PO (08:36)
[2021-01-03] MEDS: INSULIN LISPRO 100 UNIT/ML 3ML VIAL SUBCUT ×4 (09:40→21:00)
[2021-01-03 10:30] LABS: Clostridium Difficile Tox PCR Negative for C. diff
--- NOTE | 2021-01-03 10:51 | P.CONS_ITS ---
History of Present Illness Consult details Date Patient Seen: 01/03/21 Time Patient Seen: 06:54 Chief complaint: Abd pain Reason for consult: abnormal CT of abd, diarrhea, abdomenal pain, blood in stool Requesting provider: Ruel Johnston Narrative: 5 day history of crampy abdominal pain in a band across mid abdomen. Pain intermittent in nature and sharp. Diarrhea is watery with the last 24hrs there is blood on the stool (bright red). No fever or cough, no emesis or nausea. no previous events. Covid positive this last month and now Covid positive. [place] in 2019 with cardiac stents. Meds Home Medications and Allergies Home Medications Medication Instructions Recorded Confirmed Type aspirin 81 mg PO DAILY 01/02/21 01/02/21 History buspirone 15 mg PO BID 01/02/21 01/02/21 History citalopram 10 mg PO DAILY 01/02/21 01/02/21 History clopidogrel 75 mg PO DAILY 01/02/21 01/02/21 History fluoxetine 10 mg PO DAILY 01/02/21 01/02/21 History tizanidine 8 mg PO TID PRN 01/02/21 01/02/21 History Allergies Allergy/AdvReac Type Severity Reaction Status Date / Time morphine [MORPHINE] Allergy Mild [place] like Verified 01/02/21 16:20 bugs crawling on the skin Review of Systems Review of Systems ROS: Yes All systems reviewed with the patient and are negative except as otherwise documented Exam Vital Signs (past 8 hours): - 01/03/21 05:00 01/03/21 06:00 01/03/21 07:51 Temperature 97.9 F Pulse Rate 66 72 Respiratory Rate 18 16 Blood Pressure 132/63 Pulse Oximetry 96 96 96 01/03/21 08:49 Temperature Pulse Rate Respiratory Rate Blood Pressure Pulse Oximetry 94 Oxygen Delivery Method Room Air Oxygen Flow Rate 0 Const General: cooperative and disheveled HENMT Head: normal to inspection Ears: hearing grossly normal bilaterally Nose: external nose normal Eyes Sclera: sclerae normal Neck Neck: trachea midline Chest Chest: normal inspection of the chest Resp Effort & Inspection: normal respiratory effort Auscultation: clear to auscultation bilaterally Cardio Rate: regular rate Rhythm: regular rhythm GI Inspection: normal to inspection Palpation: soft and tender (mild tenderness to deep palpation left mid abdomin) Skin General: no rashes or lesions noted Wounds: no wounds Neuro General: patient alert and patient oriented x3 Extrem General: normal to inspection and full ROM Psych Appearance: grossly normal Judgment: judgment good Objective Labs Result Diagrams: 01/03/21 07:00 01/03/21 07:00 Labs: Laboratory Results - last 24 hr 01/02/21 01/02/21 01/02/21 16:50 16:50 16:50 WBC 8.0 RBC 4.70 Hgb 14.0 Hct 41.1 MCV 87.6 MCH 29.8 MCHC 34.0 RDW 13.3 Plt Count 281 Neut % (Auto) 75.2 H Lymph % (Auto) 17.8 L [place] % (Auto) 5.1 Eos % (Auto) 1.0 L Baso % (Auto) 0.9 Neut # (Auto) 6000 Lymph # (Auto) 1400 [place] # (Auto) 400 Eos # (Auto) 100 Baso # (Auto) 100 PT INR Sodium 133 L Potassium 4.0 Chloride 98 Carbon Dioxide 23 BUN 14 Creatinine 0.71 Estimated GFR > 60.0 BUN/Creatinine Ratio 19.7 Glucose 312 H Hemoglobin A1c Lactate 1.2 Calcium 9.4 Magnesium Total Bilirubin 0.4 AST 21 ALT 20 Alkaline Phosphatase 131 H NT-Pro-B Natriuret Pep Total Protein 6.9 Albumin 4.0 Globulin 2.9 Albumin/Globulin Ratio 1.4 Triglycerides Cholesterol LDL Cholesterol, Calc HDL Cholesterol Urine RBC Urine WBC Ur Squamous Epith Cells Urine Bacteria Ur Culture Indicated? C. difficile Tox (PCR) SARS-CoV-2 (PCR) 01/02/21 01/02/21 01/02/21 16:50 17:00 18:36 WBC RBC Hgb Hct MCV MCH MCHC RDW Plt Count Neut % (Auto) Lymph % (Auto) [place] % (Auto) Eos % (Auto) Baso % (Auto) Neut # (Auto) Lymph # (Auto) [place] # (Auto) Eos # (Auto) Baso # (Auto) PT INR Sodium Potassium Chloride Carbon Dioxide BUN Creatinine Estimated GFR BUN/Creatinine Ratio Glucose Hemoglobin A1c 10.0 H Lactate Calcium Magnesium 1.9 Total Bilirubin AST ALT Alkaline Phosphatase NT-Pro-B Natriuret Pep Total Protein Albumin Globulin Albumin/Globulin Ratio Triglycerides Cholesterol LDL Cholesterol, Calc HDL Cholesterol Urine RBC 0-1/hpf Urine WBC 0-1/hpf Ur Squamous Epith Cells 5-10 /hpf H Urine Bacteria Few (2-10) H Ur Culture Indicated? Cult not indicated C. difficile Tox (PCR) SARS-CoV-2 (PCR) 01/02/21 01/02/21 01/03/21 18:36 22:40 07:00 WBC 5.6 RBC 4.03 Hgb 12.0 Hct 35.3 L MCV 87.6 MCH 29.9 MCHC 34.1 RDW 13.2 Plt Count 234 Neut % (Auto) 50.4 D Lymph % (Auto) 36.4 [place] % (Auto) 8.6 Eos % (Auto) 2.8 Baso % (Auto) 1.8 Neut # (Auto) 2800 Lymph # (Auto) 2000 [place] # (Auto) 500 Eos # (Auto) 200 Baso # (Auto) 100 PT INR Sodium Potassium Chloride Carbon Dioxide BUN Creatinine Estimated GFR BUN/Creatinine Ratio Glucose Hemoglobin A1c Lactate Calcium Magnesium Total Bilirubin AST ALT Alkaline Phosphatase NT-Pro-B Natriuret Pep Total Protein Albumin Globulin Albumin/Globulin Ratio Triglycerides 560 H Cholesterol 202 H LDL Cholesterol, Calc TNP HDL Cholesterol 32 L Urine RBC Urine WBC Ur Squamous Epith Cells Urine Bacteria Ur Culture Indicated? C. difficile Tox (PCR) SARS-CoV-2 (PCR) Positive H 01/03/21 01/03/21 01/03/21 07:00 07:00 07:00 WBC RBC Hgb Hct MCV MCH MCHC RDW Plt Count Neut % (Auto) Lymph % (Auto) [place] % (Auto) Eos % (Auto) Baso % (Auto) Neut # (Auto) Lymph # (Auto) [place] # (Auto) Eos # (Auto) Baso # (Auto) PT 11.9 INR 1.1 Sodium 135 L Potassium 3.7 Chloride 106 Carbon Dioxide 24 BUN 14 Creatinine 0.86 Estimated GFR > 60.0 BUN/Creatinine Ratio 16.3 Glucose 213 H Hemoglobin A1c Lactate 0.8 Calcium 8.8 Magnesium Total Bilirubin AST ALT Alkaline Phosphatase NT-Pro-B Natriuret Pep 93 Total Protein Albumin Globulin Albumin/Globulin Ratio Triglycerides Cholesterol LDL Cholesterol, Calc HDL Cholesterol Urine RBC Urine WBC Ur Squamous Epith Cells Urine Bacteria Ur Culture Indicated? C. difficile Tox (PCR) SARS-CoV-2 (PCR) 01/03/21 09:22 WBC RBC Hgb Hct MCV MCH MCHC RDW Plt Count Neut % (Auto) Lymph % (Auto) [place] % (Auto) Eos % (Auto) Baso % (Auto) Neut # (Auto) Lymph # (Auto) [place] # (Auto) Eos # (Auto) Baso # (Auto) PT INR Sodium Potassium Chloride Carbon Dioxide BUN Creatinine Estimated GFR BUN/Creatinine Ratio Glucose Hemoglobin A1c Lactate Calcium Magnesium Total Bilirubin AST ALT Alkaline Phosphatase NT-Pro-B Natriuret Pep Total Protein Albumin Globulin Albumin/Globulin Ratio Triglycerides Cholesterol LDL Cholesterol, Calc HDL Cholesterol Urine RBC Urine WBC Ur Squamous Epith Cells Urine Bacteria Ur Culture Indicated? C. difficile Tox (PCR) Negative for c. diff SARS-CoV-2 (PCR) Assessment & Plan Assessment & Plan narrative: Covid positive. abdominal pain coincides with abnormal finding on CT of jejunal (short segment) pneumatosis. However her labs and exam are not toxic or surgical. Blood in stool likely irritation with diarrhea and hemorrhoidal. Plan: admit for observation. Antibiotics started but no fever and WBC is normal. Sending stool for C dif. COVID-19 COVID-19 status: Positive Time Spent With Patient Time with patient: 25 - 35 minutes
[2021-01-03] MEDS: AZITHROMYCIN 250 MG TABLET 500 MG PO (14:19)
--- NOTE | 2021-01-03 14:53 | PM.PN.1 ---
Subjective Subjective Date Patient Seen: 01/03/21 Time Patient Seen: 10:53 Interval history: Today she feels mildly improved. Still having diarrhea. Abdominal pain is mild. She is COVID positive but has no shortness of breath or cough and not on any oxygen. Exam Vital Signs (past 8 hours): - 01/03/21 07:51 01/03/21 08:13 01/03/21 08:49 Temperature 97.5 F L Pulse Rate 72 63 Respiratory Rate 16 16 Blood Pressure 119/51 L Pulse Oximetry 96 98 94 01/03/21 11:23 01/03/21 12:09 Temperature 97.2 F L Pulse Rate 52 L Respiratory Rate 16 Blood Pressure 117/57 L Pulse Oximetry 98 95 Oxygen Delivery Method Room Air Oxygen Flow Rate 0 Narrative Exam Narrative: General: no distress at this time. HEENT: PERRL Negative for JVD Lungs: Auscultation of all lung [place] are clear without adventitious sounds, wheezes, rhonchi, or rales. Cardio: S1 & S2 with regular rate and rhythm without murmur, rubs, or gallops, no carotid bruit, no cardiac pulsations present. Abdomen: Soft minimal tenderness in periumbilical region. Bowel sounds are present in all 4 quadrants without guarding or rebound, no CVA tenderness, negative pearl glue operator, psoas, Roper sign. Musculoskeletal: Muscle strength and tone are equal within normal limits. Skin: Warm dry and intact without rashes. Patient has healed surgical scar to in her left forearm from bypass vein harvest. Neuro: Alert and orientated x3, strength is +5/5 in all extremities, sensation to touch intact, no gross deficits noted of cranial nerves. Psych: Patient has a well-kept appearance, appropriate affect, mental status attitude thought context and judgment are appropriate for age. Objective Labs Result Diagrams: 01/03/21 07:00 01/03/21 07:00 Labs: Laboratory Results - last 24 hr 01/02/21 01/02/21 01/02/21 16:50 16:50 16:50 WBC 8.0 RBC 4.70 Hgb 14.0 Hct 41.1 MCV 87.6 MCH 29.8 MCHC 34.0 RDW 13.3 Plt Count 281 Neut % (Auto) 75.2 H Lymph % (Auto) 17.8 L Cavalier % (Auto) 5.1 Eos % (Auto) 1.0 L Baso % (Auto) 0.9 Neut # (Auto) 6000 Lymph # (Auto) 1400 Cavalier # (Auto) 400 Eos # (Auto) 100 Baso # (Auto) 100 PT INR Sodium 133 L Potassium 4.0 Chloride 98 Carbon Dioxide 23 BUN 14 Creatinine 0.71 Estimated GFR > 60.0 BUN/Creatinine Ratio 19.7 Glucose 312 H Hemoglobin A1c Lactate 1.2 Calcium 9.4 Magnesium Total Bilirubin 0.4 AST 21 ALT 20 Alkaline Phosphatase 131 H NT-Pro-B Natriuret Pep Total Protein 6.9 Albumin 4.0 Globulin 2.9 Albumin/Globulin Ratio 1.4 Triglycerides Cholesterol LDL Cholesterol, Calc HDL Cholesterol Urine RBC Urine WBC Ur Squamous Epith Cells Urine Bacteria Ur Culture Indicated? C. difficile Tox (PCR) SARS-CoV-2 (PCR) 01/02/21 01/02/21 01/02/21 16:50 17:00 18:36 WBC RBC Hgb Hct MCV MCH MCHC RDW Plt Count Neut % (Auto) Lymph % (Auto) Cavalier % (Auto) Eos % (Auto) Baso % (Auto) Neut # (Auto) Lymph # (Auto) Cavalier # (Auto) Eos # (Auto) Baso # (Auto) PT INR Sodium Potassium Chloride Carbon Dioxide BUN Creatinine Estimated GFR BUN/Creatinine Ratio Glucose Hemoglobin A1c 10.0 H Lactate Calcium Magnesium 1.9 Total Bilirubin AST ALT Alkaline Phosphatase NT-Pro-B Natriuret Pep Total Protein Albumin Globulin Albumin/Globulin Ratio Triglycerides Cholesterol LDL Cholesterol, Calc HDL Cholesterol Urine RBC 0-1/hpf Urine WBC 0-1/hpf Ur Squamous Epith Cells 5-10 /hpf H Urine Bacteria Few (2-10) H Ur Culture Indicated? Cult not indicated C. difficile Tox (PCR) SARS-CoV-2 (PCR) 01/02/21 01/02/21 01/03/21 18:36 22:40 07:00 WBC 5.6 RBC 4.03 Hgb 12.0 Hct 35.3 L MCV 87.6 MCH 29.9 MCHC 34.1 RDW 13.2 Plt Count 234 Neut % (Auto) 50.4 D Lymph % (Auto) 36.4 Cavalier % (Auto) 8.6 Eos % (Auto) 2.8 Baso % (Auto) 1.8 Neut # (Auto) 2800 Lymph # (Auto) 2000 Cavalier # (Auto) 500 Eos # (Auto) 200 Baso # (Auto) 100 PT INR Sodium Potassium Chloride Carbon Dioxide BUN Creatinine Estimated GFR BUN/Creatinine Ratio Glucose Hemoglobin A1c Lactate Calcium Magnesium Total Bilirubin AST ALT Alkaline Phosphatase NT-Pro-B Natriuret Pep Total Protein Albumin Globulin Albumin/Globulin Ratio Triglycerides 560 H Cholesterol 202 H LDL Cholesterol, Calc TNP HDL Cholesterol 32 L Urine RBC Urine WBC Ur Squamous Epith Cells Urine Bacteria Ur Culture Indicated? C. difficile Tox (PCR) SARS-CoV-2 (PCR) Positive H 01/03/21 01/03/21 01/03/21 07:00 07:00 07:00 WBC RBC Hgb Hct MCV MCH MCHC RDW Plt Count Neut % (Auto) Lymph % (Auto) Cavalier % (Auto) Eos % (Auto) Baso % (Auto) Neut # (Auto) Lymph # (Auto) Cavalier # (Auto) Eos # (Auto) Baso # (Auto) PT 11.9 INR 1.1 Sodium 135 L Potassium 3.7 Chloride 106 Carbon Dioxide 24 BUN 14 Creatinine 0.86 Estimated GFR > 60.0 BUN/Creatinine Ratio 16.3 Glucose 213 H Hemoglobin A1c Lactate 0.8 Calcium 8.8 Magnesium Total Bilirubin AST ALT Alkaline Phosphatase NT-Pro-B Natriuret Pep 93 Total Protein Albumin Globulin Albumin/Globulin Ratio Triglycerides Cholesterol LDL Cholesterol, Calc HDL Cholesterol Urine RBC Urine WBC Ur Squamous Epith Cells Urine Bacteria Ur Culture Indicated? C. difficile Tox (PCR) SARS-CoV-2 (PCR) 01/03/21 09:22 WBC RBC Hgb Hct MCV MCH MCHC RDW Plt Count Neut % (Auto) Lymph % (Auto) Cavalier % (Auto) Eos % (Auto) Baso % (Auto) Neut # (Auto) Lymph # (Auto) Cavalier # (Auto) Eos # (Auto) Baso # (Auto) PT INR Sodium Potassium Chloride Carbon Dioxide BUN Creatinine Estimated GFR BUN/Creatinine Ratio Glucose Hemoglobin A1c Lactate Calcium Magnesium Total Bilirubin AST ALT Alkaline Phosphatase NT-Pro-B Natriuret Pep Total Protein Albumin Globulin Albumin/Globulin Ratio Triglycerides Cholesterol LDL Cholesterol, Calc HDL Cholesterol Urine RBC Urine WBC Ur Squamous Epith Cells Urine Bacteria Ur Culture Indicated? C. difficile Tox (PCR) Negative for c. diff SARS-CoV-2 (PCR) [facility] Medical History Depression with anxiety Essential hypertension History of COVID-19 History of heart attack Non-insulin dependent type 2 diabetes mellitus Tobacco abuse Surgical History History of fusion of cervical spine History of heart bypass surgery Status post laparoscopic supracervical hysterectomy Family History Father Heart attack Mother Breast cancer Social History household members: friend(s) Smoking Status: Former smoker alcohol intake: never Assessment & Plan Assessment & Plan narrative: Ms Beebe is a 55W with PMH CAD s/p bypass, hypertension, and non insulin-dependent type 2 diabetes who comes in with diarrhea and abdominal pain found to have campylobacter infection in stool and focal pneumatosis on exam. 1. Campylobacter gastroenteritis -patient continues to have frequent diarrhea -will switch antibiotics to oral azithromycin planned for 3 days -continue to follow patients abdominal symptoms closely 2. Pneumatosis -patient does not have severe abdominal pain -surgery has been consulted -Dr. Kwok recommends continued monitoring and no surgical need currently -continue with symptom control with meds for nausea, and pain 3. Type 2 diabetes, acute on chronic, present on admission, uncontrolled -admit glucose 312, patient admitted under diabetes protocol, low-dose insulin sliding scale for blood sugar management, A1c: 10%. -will start patient on lantus 10units at bed time, due to A1C patient should be started on lantus for control. 4. Essential hypertension secondary to coronary artery disease resulting in heart attack and 3 way bypass, 2019, related to uncontrolled Diabetes type 2, acute on chronic, present on admission, uncontrolled due to patient's noncompliance. -restart patients atorvastatin, Plavix, ASA, and lisinopril. Lipids ordered. 5. COVID positive. -patient's symptoms appear unrelated to covid as she has confirmed campylobacter -no respiratory symptoms and patient is not on oxygen -no indication remdesivir or steroids currently -continue to monitor 6. Depression with anxiety, acute on chronic, present on admission, uncontrolled -patient denies SI -will restart patients buspirone, citalopram, and Prozac. Code status: Full code Surrogate decisionmaker: Sabrina Franco Daughter COVID PCR: Negative DVT/VTE prophylaxis: SCDs Patients on Plavix PCP: Shanda Alexander in [place]
--- NOTE | 2021-01-03 17:02 | CM.DANOTE ---
DCP Assessment: Patient is a 55 year-old female.? Admitted for pneumatosis? Intestinalis and is COVID positive. PCP is Shanda Alexander. Primary payer is [facility] [place] and Medicaid. Was able to meet with patient via the telephone this date due to COVID positive diagnosis. Educated patient on the role of social work in D/C planning. Patient is independent at [facility] for ADL?s. Patient lives with friends. She reported friends are comfortable with her returning to the home even with a COVID positive diagnosis. Patient is unsure of transportation from the hospital. Informed patient [place] is not an option due to COVID. Will submit Hospital Discharge Request Form to Medicaid transportation. Encouraged patient to see if she has a friend who can provide transportation. PLAN: Anticipate D/C home. Will assist with exploring transportation options.? CM Team to continue to follow. ALEXA Boyer MSW Student Discharge Planning/Care Management CM Discharge Assessment Start: 01/03/21 16:59 Freq: Status: Active Protocol: Document 01/03/21 17:00 AL (Rec: 01/03/21 17:02 AL [id number]) Discharge Planning Assessment Assigned Assembling Motor Builder ALEXA Hemphill Student Contact Information Rosie Killian Mother [phone] Advance Directives? No History Provided By Patient,Medical Record Has Patient been admitted in last 30 No days? Prior Living Arrangements House Comment Lives with friends Household Members friend(s) Type of transporation used prior to Drives own vehicle admit Independent with ADL's Yes Is patient alert and oriented? Yes Caregiver for Another No Barriers to Discharge No Discharge Plan Home Transportation Arrangement Will assist in securing transportation Whiteboard Updated in Patient Room with No name and ext. # of Assembling Motor Builder Review Status In Process
--- NOTE | 2021-01-03 19:18 | PC.NURSE ---
Report received, care assumed 1530. A&Ox3. Bradycardic at 52 bpm; otherwise VSS. C/o moderate abdominal pain (cramping), relieved with ordered IVP hydromorphone. Low fall risk, independent in room. Pt. had Covid-19 a couple months ago; still testing positive. Precautions observed. Per patient, diarrhea is improving since admission; now having soft stools, rather than liquid.
[2021-01-03] MEDS: ATORVASTATIN 20 MG TABLET 80 MG PO (20:36)
[2021-01-03] MEDS: SENNOSIDES 8.6 MG TABLET 17.2 MG PO (20:36)
[2021-01-03] MEDS: INSULIN GLARGINE 100 UNIT/ML 3ML PEN 10 UNIT SUBCUT (20:57)
[2021-01-03] MEDS: TIZANIDINE 4 MG TABLET 8 MG PO (23:25)
[2021-01-04] VITALS: BP 153/72; PULSE 68; RESP 16; TEMP 36.9; O2SAT 94
[2021-01-04] MEDS: HYDROMORPHONE 0.5 MG INJ IV ×2 (00:30→09:02)
[2021-01-04 03:44] VITALS: BP 130/59; PULSE 54; RESP 16; TEMP 36.6
[2021-01-04 04:56] VITALS: O2SAT 94
[2021-01-04] MEDS: PANTOPRAZOLE DR 20 MG TABLET PO (05:16)
[2021-01-04 07:59] VITALS: BP 131/63; PULSE 56; RESP 16; TEMP 36.1; O2SAT 97
[2021-01-04 08:00] VITALS: O2SAT 97
[2021-01-04 08:14] LABS: Add Manual Diff / Slide Review NO; Basophils Absolute Auto 100 /uL (0-100); Eosinophils Absolute Auto 200 /uL (0-450); Eosinophils Percent Auto 3.3 % (2-4); Hematocrit 36.1 % (36-46); Hemoglobin 12.1 g/dL (12.0-16.0); Lymphocytes Absolute Auto 2100 /uL (1100-4500); Lymphocytes Percent Auto 37.3 % (25-40); Mean Corpuscular HGB Conc 33.6 % (30-36); Mean Corpuscular Hemoglobin 29.6 PG (26-34); Mean Corpuscular Volume 88.1 fL (80-100); Monocytes Absolute Auto 500 /uL (0-900); Neutrophils Absolute Auto 2900 /uL (1500-7000); Neutrophils Percent Auto 50.4 % (50-75); Platelet Count 227 X10^3/uL (150-400); Red Cell Distribution Width 13.7 % (11.6-14.8); White Blood Cell Count 5.7 X10^3/uL (4.5-11.0)
[2021-01-04 08:21] LABS: BUN Creatinine Ratio 24.1 (6-22); Blood Urea Nitrogen 19 mg/dL (7-17); Calcium 9.1 mg/dL (8.4-10.2); Carbon Dioxide 26 mmol/L (22-32); Chloride 108 mmol/L (98-107); Estimated Glomerular Filt Rate > 60.0 mL/min (>60); Glucose 213 mg/dL (70-100); HEMOLYSIS < 15 (0-50); Potassium 3.8 mmol/L (3.4-5.1); Sodium 139 mmol/L (137-145)
[2021-01-04] MEDS: INSULIN LISPRO 100 UNIT/ML 3ML VIAL SUBCUT (08:44)
[2021-01-04 08:46] VITALS: BP 131/63; PULSE 56
[2021-01-04] MEDS: lisinopriL 10 MG TABLET PO (08:46)
[2021-01-04] MEDS: CITALOPRAM 10 MG TABLET PO (08:46)
[2021-01-04] MEDS: ASPIRIN 81 MG CHEW TAB PO (08:46)
[2021-01-04] MEDS: FLUoxetine 10 MG CAPSULE PO (08:46)
[2021-01-04] MEDS: CLOPIDOGREL 75 MG TABLET PO (08:46)
[2021-01-04] MEDS: BUSPIRONE 5 MG TABLET 15 MG PO (08:47)
[2021-01-04] MEDS: ACETAMINOPHEN 325 MG TABLET 650 MG PO (08:47)
[2021-01-04] MEDS: AZITHROMYCIN 250 MG TABLET 500 MG PO (08:47)
[2021-01-04 10:07] LABS: Hemoglobin A1C% w Est Avg Glu 10.1 % (4.0-6.0)
--- NOTE | 2021-01-04 10:18 | PM.DS.1 ---
History of Present Illness History of Present Illness Chief complaint: Abd pain Narrative: Per Yan and P from Christie Dickerson: Patient is a 55-year-old female Ginny Beebe presented to the ED via EMS with a chief complaint of abdominal pain and tenderness since with nausea and watery stools and incontinence of stools. Her pain is sharp and comes and goes but is persistent, without provocation, palliation or radiation. The pain is generally diffuse, with the greatest intensity in a band like presentation across the upper left to right abdomen, No CVA tenderness, no pain with urination or liquid stools. Denies any recent travel, exposure to bad food or recent antibiotic use, injury, trauma, fever, body aches, or chills. She does complain of some bright red blood in her stools over the past few days and dizziness and balance issues with standing leading her to have spent the past 5 days in bed. Patient is a former smoker with history of kidney stones, a heart attack with 3 way bypass [place] in August 2019, Positive covid infectiona few months ago, HTN, depression with anxiety, chronic pain neck with neck fusion 07/2020 and Diabetes Type 2. Patient reports that she became so ill with her COVID infection a few months ago that she stop taking all of her medications which included metformin, asa, Atorvastatin, Plavix, lisinopril, citalopram, Prozac, and buspirone. Patent's vitals at the time of admit temp 98.7?, BP 188/98, HR 109, R 22, O2 saturation 98% on room air. Patient's labs sodium 133, glucose 312, alk-phos 131. CT ABD/Pelvis: Proximal small bowel focal pneumatosis in the left flank. Differential would include localized mesenteric ischemia and thrombosed small bowel polyp. No evidence of obstruction, portal venous gas, free air or free fluid. Incidental hepatic fatty infiltration, small hiatal hernia. ED Consultation #1: Discussed initially with on-call surgery, given the duration of her symptoms and overall presentation she recommends IV fluids, pain control, antibiotics and will see in consultation, recommended admission to the hospitalist. Admit for Pneumatosis Intestinalis Discharge Providers Provider Date of admission: 01/02/21 18:47 Discharge Date: 01/04/21 Consults: 01/03/21 21:09 Consult to Discharge Planning Routine Comment: needs ride home, covid + Discharge provider: Hamilton De La Cruz MD Summary Hospital Course Discharge Diagnosis: 1. Campylobacter gastroenteritis 2. Pneumatosis intestinalis 3. Type 2 Diabetes 4. COVID positive 5. Hypertension 6. CAD s/p bypass 7. Type 2 Diabetes 8. Depression/Anxiety Hospital Course: Ms. Beebe initially came in with diarrhea and abdominal pain. She was found to have a focal area on pneumatosis on imaging. Initially she was started on broad spectrum antibiotics. She however remained clinically stable. Her belly was soft, but tender. She did have blood in her stool. Surgery was consulted but felt there was no surgical indication. She was found to have COVID positive on PCR and additionally had campylobacter in her stool. She had no respiratory symptoms or hypoxemia, so medications were not indicated in her case. Her symptoms are likely secondary to the campylobacter infection and she will be prescribed 3 days of antibiotics for this infection. Less likely is that the pneumatosis is secondary to COVID. But given her improving symptoms she will be discharged home. She should follow up with PCP about the pneumatosis to assess for resolution with follow up imaging. Exam Vital Signs (past 8 hours): Oxygen Delivery Method Room Air Oxygen Flow Rate 0 Narrative Exam Narrative: General: no distress at this time. HEENT: PERRL Negative for JVD Lungs: Clear lungs bilaterally Cardio: Regular rate and rhythm without murmur, rubs, or gallops, no carotid bruit, no cardiac pulsations present. Abdomen: Soft minimal tenderness in periumbilical region. Normal bowel sounds Musculoskeletal: Muscle strength and tone are equal within normal limits. Skin: Warm dry and intact without rashes. Neuro: Alert and orientated x3, strength is +5/5 in all extremities, sensation to touch intact, no gross deficits noted of cranial nerves. Psych: Patient has a well-kept appearance, appropriate affect, mental status attitude thought context and judgment are appropriate for age. Objective Labs Result Diagrams: 01/04/21 07:50 01/04/21 07:50 [facility] Medical History Depression with anxiety Essential hypertension History of COVID-19 History of heart attack Non-insulin dependent type 2 diabetes mellitus Tobacco abuse Surgical History History of fusion of cervical spine History of heart bypass surgery Status post laparoscopic supracervical hysterectomy Family History Father Heart attack Mother Breast cancer Social History household members: friend(s) Smoking Status: Former smoker alcohol intake: never Discharge Plan Discharge Plan Patient Disposition: Home Provider Discharge Comment: Ms. Beebe came into the hospital with abdominal pain and diarrhea. She was found to have campylobacter bacterial infection in the stool, possibly from something she ate. She was started on antibiotics. She had a small area of pneumatosis in the intestine, and surgery evaluated and said she did not need any surgery, this was possibly from infection. She should continue antibiotics for two more days. She was also covid positive but was not having any cough or shortness of breath. She should monitor her symptoms, and try to stay isolated and masked for at least one week. She had elevated blood sugars, and known diabetes, so was started on metformin Discharge orders & Medications Prescriptions: New azithromycin [Zithromax Z-[id number]] 250 mg Tablet 500 mg PO DAILY Qty: 4 RF: 0 metformin 500 mg tablet 500 mg PO BID Qty: 60 RF: 0 hydrocodone-acetaminophen 5-325 mg tablet 1 tab PO Q6H PRN (Reason: pain) Qty: 10 RF: 0 Continued aspirin 81 mg tablet,chewable 81 mg PO DAILY RF: 0 citalopram 10 mg tablet 10 mg PO DAILY RF: 0 fluoxetine 10 mg capsule 10 mg PO DAILY RF: 0 tizanidine 4 mg tablet 8 mg PO TID PRN (Reason: Muscle Pain) RF: 0 clopidogrel 75 mg tablet 75 mg PO DAILY RF: 0 buspirone 15 mg tablet 15 mg PO BID RF: 0 Visit Report/Discharge Packet Instructions: Diarrhea, Probiotics May Decrease Intensity and Duration of Diarrhea Due to Infection, Metformin, Azithromycin Quality MIPS - DC The patient has current or prior documentation of left ventricular ejection fraction (LVEF) less than 40%, or moderate or severely depressed left ventricular systolic function.: No
--- NOTE | 2021-01-04 11:37 | PC.NURSE ---
Pt this a.m. A&Ox3, ambulating independently in room. Minimal po intake, c/o 4-6 pain in abdomen. +BS. Denies nausea. CURRAN well. LS CTA. Pt evaluated by MD and cleared for discharge this a.m. Pt eager to discharge home. VSS, afebrile, per baseline slightly bradycardic 50's. Denies dizziness. Pt escorted by RN with all of belongins and prescriptions to [facility]. She verbalizes understanding of all discharge instructions, education, medication and follow up instructions.
--- NOTE | 2021-01-04 12:49 | CM.DPC ---
DCP/continued: Patient medically stable for discharge home today. Patient unable to find transportation home. Therefore, she has decided to walk. Patient made aware that Medicaid could be contacted but it is unclear on whether or not they will be able to provide transport due to patient being COVID positive. Patient aware and does not want to wait. P: Home today. ALEXA Boyer
== END 2021-01-04 10:50 | disposition home or self-care (01) | DRG 248 ==
LOC: ED 18:43 → AC 01-03 09:17
PROVIDERS: Nurse Practitioner Family; Surgery; Admitting Provider Internal Medicine; Emergency Provider Emergency Medicine; Referring Provider Emergency Medicine; Visit Provider Internal Medicine
DX: A04.5 Campylobacter enteritis (principal); K63.89 Other specified diseases of intestine; U07.1 COVID-19; F17.210 Nicotine dependence, cigarettes, uncomplicated; E11.65 Type 2 diabetes mellitus with hyperglycemia; I10 Essential (primary) hypertension; F41.8 Other specified anxiety disorders; I25.10 Atherosclerotic heart disease of native coronary artery without angina pectoris; Z86.16 Personal history of COVID-19; Z95.1 Presence of aortocoronary bypass graft
CPT/HCPCS: 36415; 74177; 80048; 80053; 80061; 81003; 81015; 81025; 82962; 83036; 83605; 83735; 83880; 85025; 85610; 87040; 87045; 87046; 87493; 87635; 87899; 96361; 96365; 96375; 99283; 99284; C9803; G0378; J1170; J1815; J1885; J2405; J2543; Q9967